=== PATIENT | female | born 1940 | race Caucasian/White ===

== ENCOUNTER 2019-05-30 11:35 | Outpatient (CLI) | payer MEDICARE, OTHER, SELFPAY ==
--- NOTE | ~2019-05-30 | XR_ITS ---
EXAMINATION: XR cervical spine min 6V EXAM DATE: 05/30/2019 12:09 INDICATION: Neck pain. TECHNIQUE: Cervical spine frontal, lateral, lateral swimmers, and open-mouth odontoid projections. Additional lateral flexion and lateral extension projections obtained. FINDINGS: There is moderate disc disease at C5-6 and 6-7, mild to moderate at C4-5. The vertebral sandi dies are aligned in the AP dimension on the neutral and extension lateral projections. There is 2 mm anterolisthesis C3 on C4 and C4 on C5 on the flexion projection. There could be moderate neural pieter inal stenosis at C5-6 and C6-7 predominantly from uncovertebral joint arthropathy. Overall moderate c ervical facet joint arthropathy. There is dense right carotid bulb arterial sclerosis with unknown amount of additional atherosclerosi s. Consider correlating with follow-up carotid ultrasound. IMPRESSION: 1. Moderate cervical spondylosis. 2. Dense right carotid bulb arterial sclerosis, consider carotid ultrasound. Reviewed, dictated and finalized at location A. [facility]
== END 2019-05-30 11:36 | disposition home or self-care (01) ==
LOC: ANHIMG 11:47
PROVIDERS: Visit Provider Physical Medicine & Rehabilitation Pain Medicine
DX: M47.892 Other spondylosis, cervical region (principal)
CPT/HCPCS: 72052